=== PATIENT | female | born 1945 ===

== ENCOUNTER 2018-05-25 18:04 | Emergency (ER) | payer MEDICARE, OTHER ==
[2018-05-25] MEDS ORDERED: Sodium Chloride 0.9% 1,000 ML IV ONE (19:06)
[2018-05-25 19:28] VITALS: PULSE 74
[2018-05-25 19:52] LABS: BASO # 0.1 K/uL (0.0-0.2); EOS # 0.2 K/uL (0.0-0.7); EOS % 1.9 % (0.0-4.0); HEMOGLOBIN 14.5 g/dL (11.0-16.0); LYMPH # 2.4 K/uL (1.0-4.3); LYMPH % 22.5 % (20.0-40.0); MEAN CELL VOLUME 93.8 fL (81.0-99.0); MEAN CORPUSCULAR HEMOGLOBIN 30.9 pg (27.0-31.0); MONO # 0.5 K/uL (0.0-0.8); MONO % 5.2 % (0.0-10.0); NEUT # 7.3 K/uL (1.8-7.0); NEUT % 69.4 % (50.0-75.0); RBC 4.67 Mil/uL (3.80-5.20); RED CELL DISTRIBUTION WIDTH 13.8 % (11.5-14.5); WHITE BLOOD COUNT 10.5 K/uL (4.8-10.8)
[2018-05-25 19:59] LABS: SQUAMOUS EPITHIAL < 1 /hpf (0-5); URINE BACTERIA RARE (<OCC); URINE BILIRUBIN NEGATIVE (NEGATIVE); URINE BLOOD 1+ (NEGATIVE); URINE CLARITY Clear (Clear); URINE COLOR Straw (YELLOW); URINE GLUCOSE (UA) NORMAL (Normal); URINE LEUKOCYTE ESTERASE NEG Leu/uL (Negative); URINE PROTEIN NEGATIVE (NEGATIVE); URINE UROBILINOGEN NORMAL mg/dL (0.2-1.0)
[2018-05-25 20:05] LABS: ALB/GLOB RATIO 1.4 (1.0-2.1); ALBUMIN 4.5 g/dL (3.5-5.0); ALT/SGPT 24 U/L (9-52); AST/SGOT 31 U/L (14-36); BLOOD UREA NITROGEN 23 mg/dL (7-17); CALCIUM 9.6 mg/dl (8.6-10.4); GFR NON-AFRICAN AMERICAN > 60; LIPASE 351 U/L (23-300)
--- NOTE | 2018-05-25 20:11 | C.PDOC ---
History Of Present Illness 73 year old female presents with lower abdominal pain since last week, referred by Dr. Krzysztof Hernández for evaluation. Patient with Hx of diverticulitis with bowel resection in 2010 at [place]. Time Seen by Provider: 05/25/18 18:54 Chief Complaint (Nursing): Abdominal Pain History Per: Patient History/Exam Limitations: no limitations Onset/Duration Of Symptoms: Days (7) Current Symptoms Are (Timing): Still Present Location Of Pain/Discomfort: Other (Lower) Quality Of Discomfort: Unable To Describe Associated Symptoms: denies: Fever, Chills, Nausea, Vomiting, Diarrhea Exacerbating Factors: None Alleviating Factors: None Recent travel outside of the [place]: No Abnormal Vaginal Bleeding: No Past Medical History Reviewed: Historical Data, Nursing Documentation, Vital Signs Vital Signs: Last Vital Signs Temp 97.9 F 05/25/18 19:27 Pulse 74 05/25/18 19:27 Resp 18 05/25/18 19:27 BP 145/84 05/25/18 19:27 Pulse Ox 99 05/25/18 19:27 - Medical History PMH: HTN Family History: States: No Known Family Hx - Social History Hx Alcohol Use: No Hx Substance Use: No - Immunization History Hx Tetanus Toxoid Vaccination: No Hx Influenza Vaccination: No Hx Pneumococcal Vaccination: No Review Of Systems Constitutional: Negative for: Fever, Chills Cardiovascular: Negative for: Chest Pain, Palpitations Respiratory: Negative for: Cough, Shortness of Breath Gastrointestinal: Positive for: Abdominal Pain. Negative for: Nausea, Vomiting Neurological: Negative for: Weakness, Numbness Physical Exam - Physical Exam Appears: Non-toxic, Other (Thin female) Skin: Warm Head: Atraumatic, Normacephalic Eye(s): bilateral: Normal Inspection Oral Mucosa: Moist Neck: Normal, Supple Chest: Symmetrical, No Tenderness Cardiovascular: Rhythm Regular Respiratory: Normal Breath Sounds, No Rales, No Rhonchi, No Wheezing Gastrointestinal/Abdominal: Soft, Tenderness (Lower), No Guarding, No Rebound, Other (Two large surgical scars to lower abdomen. Bloating to lower abdomen) Back: No CVA Tenderness Neurological/Psych: Oriented x3, Normal Speech ED Course And Treatment - Laboratory Results Result Diagrams: 05/25/18 19:43 05/25/18 19:43 Lab Results: Total Bilirubin 0.3 mg/dL (0.2-1.3) 05/25/18 19:43 AST 31 U/L (14-36) 05/25/18 19:43 ALT 24 U/L (9-52) 05/25/18 19:43 Alkaline Phosphatase 105 U/L (38-126) 05/25/18 19:43 Total Protein 7.6 g/dL (6.3-8.3) 05/25/18 19:43 Albumin 4.5 g/dL (3.5-5.0) 05/25/18 19:43 Globulin 3.1 gm/dL (2.2-3.9) 05/25/18 19:43 Albumin/Globulin Ratio 1.4 (1.0-2.1) 05/25/18 19:43 Lipase 351 U/L (23-300) H 05/25/18 19:43 Urine Color Straw (YELLOW) 05/25/18 19:43 Urine Clarity Clear (Clear) 05/25/18 19:43 Urine pH 7.0 (5.0-8.0) 05/25/18 19:43 Ur Specific [place] 1.010 (1.003-1.030) 05/25/18 19:43 Urine Protein Negative mg/dL (NEGATIVE) 05/25/18 19:43 Urine Glucose (UA) Normal mg/dL (Normal) 05/25/18 19:43 Urine Ketones Negative mg/dL (NEGATIVE) 05/25/18 19:43 Urine Blood 1+ (NEGATIVE) H 05/25/18 19:43 Urine Nitrate Negative (NEGATIVE) 05/25/18 19:43 Urine Bilirubin Negative (NEGATIVE) 05/25/18 19:43 Urine Urobilinogen Normal mg/dL (0.2-1.0) 05/25/18 19:43 Ur Leukocyte Esterase Neg Yadira/uL (Negative) 05/25/18 19:43 Urine WBC (Auto) 1 /hpf (0-5) 05/25/18 19:43 Urine RBC (Auto) 7 /hpf (0-3) H 05/25/18 19:43 Ur Squamous Epith Cells < 1 /hpf (0-5) 05/25/18 19:43 Urine Bacteria Rare (<OCC) 05/25/18 19:43 Lab Interpretation: Normal (ua neg.) O2 Sat by Pulse Oximetry: 99 (Room air) Pulse Ox Interpretation: Normal - CT Scan/US Abd/pel Other Rad Studies (CT/US): Read By Radiologist, Radiology Report Reviewed CT/US Interpretation: IMPRESSION: 1. Evidence of mild gastritis. 2. Findings suspicious for mild chronic cystitis. 3. Large midline ventral hernia containing segments of small, large intestine and fat. 4. Status post cholecystectomy. 5. Status post hysterectomy. 6. There appears to have been prior appendectomy. 7. Evidence of previous rectal anastomosis. Reevaluation Time: 22:04 Reassessment Condition: Improved - Physician Consult Information Outcome Of Conversation: 2200: d/w Dr. Holliday, GI who referred pt today, labs normal and large vent hernia without acute issues. He recommends d/c home w opt f/u and reassurance Medical Decision Making Medical Decision Making: large surgical ventral hernia without acute issues ok for opt f/u Surgical eval for treatment is NOT a reasonable option at this time. NOT an acute belly. Disposition Doctor Will See Patient In The: Office Counseled Patient/Family Regarding: Studies Performed, Diagnosis - Disposition Disposition: HOME/ ROUTINE Disposition Time: 22:08 Condition: GOOD Forms: [employer] (formerly [employer]) Connect (Kazakh) - Clinical Impression Clinical Impression: Ventral hernia - Scribe Statement The provider has reviewed the documentation as recorded by the Scribe Rome Dominguez All medical record entries made by the Yrisibronny were at my direction and personally dictated by me. I have reviewed the chart and agree that the record accurately reflects my personal performance of the history, physical exam, medical decision making, and the department course for this patient. I have also personally directed, reviewed, and agree with the discharge instructions and disposition.
[2018-05-25] MEDS ORDERED: Iohexol 300 100 ML IJ ONE (20:16)
[2018-05-25 22:10] VITALS: BP 119/63; RESP 20; TEMP 98.7; O2SAT 95
--- NOTE | 2018-05-26 09:57 | CT ---
Date of service: 05/25/2018 PROCEDURE: CT Abdomen and Pelvis without intravenous contrast HISTORY: Abdominal pain. History of bowel resection. COMPARISON: 12/25/2013 TECHNIQUE: CT scan of the abdomen and pelvis was performed without administration of intravenous contrast. Oral contrast was not administered. Coronal and sagittal reformatted images were obtained. Radiation dose: Total exam DLP = 320.93 mGy-cm. This CT exam was performed using one or more of the following dose reduction techniques: Automated exposure control, adjustment of the mA and/or kV according to patient size, and/or use of iterative reconstruction technique. FINDINGS: LOWER THORAX: The visualized lungs are clear. LIVER: Mild hepatomegaly with caudate lobe hypertrophy. No gross lesion or ductal dilatation. GALLBLADDER AND BILE DUCTS: Surgically absent. PANCREAS: Normal in size. No gross lesion or ductal dilatation. SPLEEN: Normal in size. ADRENALS: Normal in size. No discrete nodule. KIDNEYS AND URETERS: Both kidneys are normal in size. No hydronephrosis or nephrolithiasis. VASCULATURE: Normal in caliber. No aortic aneurysm. No aortic atherosclerotic calcification or mural plaque present. BOWEL: Evaluation of the bowel is limited in the absence of oral contrast. The small bowel loops are normal in caliber. There is fecalization of small bowel contents. There is moderate amount of stool in the colon. No bowel wall thickening or obstruction. Status post partial sigmoid colon resection. APPENDIX: No inflammatory changes in the right lower quadrant. PERITONEUM: No free fluid. No free air. LYMPH NODES: No enlarged lymph nodes. BLADDER: There is mild circumferential mural thickening of the urinary bladder wall. REPRODUCTIVE: The uterus is surgically absent. BONES: No acute fracture. Within normal limits for the patient's age. OTHER FINDINGS: There is a large infraumbilical ventral hernia containing nonobstructed small bowel loops and more inferiorly a smaller infraumbilical ventral hernia containing nonobstructed small bowel loops with IMPRESSION: No acute abdominal or pelvic abnormality. Infraumbilical ventral hernias containing nonobstructed small bowel loops. Constipation and fecalization of small bowel contents consistent with chronic stasis. Mild circumferential mural thickening of the urinary bladder wall which may represent cystitis. Please correlate with urine analysis. A preliminary report was provided by [employer].
== END 2018-05-25 22:35 | disposition home or self-care (01) ==
LOC: C.ER 18:04
DX: K43.9 Ventral hernia without obstruction or gangrene (principal)
CPT/HCPCS: 74176; 80053; 81001; 83690; 85025; 96361; 96374; 99284; J1885; J7030

== ENCOUNTER 2018-05-26 00:01 | Emergency (ER) | payer MEDICARE ==
[2018-05-26 00:27] VITALS: BMI 48.0
[2018-05-26 02:32] VITALS: RESP 18
--- NOTE | 2018-05-26 02:49 | C.PDOC ---
History Of Present Illness 73 year old female was seen here earlier but while waiting for the bus she tripped and hit both her knees, unsure of head injury. Bystanders helped her up and brought her in. Denies other known injuries. - HPI Time Seen by Provider: 05/26/18 00:25 Chief Complaint (Nursing): Trauma History Per: Patient History/Exam Limitations: no limitations Onset/Duration Of Symptoms: Mins Injury Occurred (Timing): Just Before Arrival Location Of Injury: Right: Knee (Abrasions), Left: Knee Recent travel outside of the [place]: No - Fall Fall:Prior To Injury: Tripped Past Medical History Reviewed: Historical Data, Nursing Documentation, Vital Signs Vital Signs: Last Vital Signs Temp 98.5 F 05/26/18 02:31 Pulse 63 05/26/18 02:31 Resp 18 05/26/18 02:31 BP 105/62 05/26/18 02:31 Pulse Ox 97 05/26/18 02:31 - Medical History PMH: HTN Family History: States: Unknown Family Hx - Social History Hx Alcohol Use: No Hx Substance Use: No - Immunization History Hx Tetanus Toxoid Vaccination: No Hx Influenza Vaccination: No Hx Pneumococcal Vaccination: No Review Of Systems Musculoskeletal: Negative for: Neck Pain, Back Pain Skin: Positive for: Other (Abrasion) Neurological: Negative for: Weakness, Numbness, Dizziness Physical Exam - Physical Exam Appears: Well, Non-toxic, No Acute Distress Skin: Warm Head: Atraumatic, Normacephalic, Other (No apparent head injury) Eye(s): bilateral: Normal Inspection, PERRL, EOMI Oral Mucosa: Moist Neck: Normal ROM, No Midline Cervical Tenderness, No Paracervical Tenderness, Supple Back: No Vertebral Tenderness, No Paraspinal Tenderness Extremity: Normal ROM (x4), Other (Abrasions to bilateral knees) Pulses: Left Dorsalis Pedis: Normal, Right Dorsalis Pedis: Normal Neurological/Psych: Oriented x3, Normal Speech, Normal Cranial Nerves (Grossly intact), Normal Motor, Normal Sensation, Romberg (Answers appropriately) ED Course And Treatment O2 Sat by Pulse Oximetry: 97 (Room air) Pulse Ox Interpretation: Normal - CT Scan/US CT Head Other Rad Studies (CT/US): Read By Radiologist, Radiology Report Reviewed CT/US Interpretation: CT SCAN OF THE BRAIN WITHOUT IV CONTRAST. CLINICAL INDICATION: s/p fall injuring both knees right frontal region and swelling over zygoma NO CT AVAIL, ONLY MRI (Hx). COMPARISON: 06/16/2017 01:26 PM EDT: MR\SD: MRA HEAD WITHOUT CONTRAST. TECHNIQUE: Axial and reformatted sagittal and coronal images of the brain obtained without IV contrast administration. Normal size of the ventricles and extra-axial spaces for the patient's age. Normal white matter tracts of the supratentorial brain. Normal basal ganglia and thalami. Normal brainstem. Normal cerebellum. There is no demonstrated extra- axial, intraparenchymal, or intraventricular hemorrhage. There are no findings of an acute ischemic infarction. Normal calvarium. There is no demonstrated fracture. Normal soft tissue structures. Mild chronic mucosal inflammatory changes of the left maxillary sinus. Normal remaining visualized paranasal sinuses. IMPRESSION: Normal unenhanced CT scan of the brain. Progress Note: She slept in the ED overnight until daylight returned. she had no acute issues overnight. 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 - Scribe Statement The provider has reviewed the documentation as recorded by the Scribe Rome Dominguez All medical record entries made by the Scribe were at my direction and personally dictated by me. I have reviewed the chart and agree that the record accurately reflects my personal performance of the history, physical exam, medical decision making, and the department course for this patient. I have also personally directed, reviewed, and agree with the discharge instructions and disposition.
[2018-05-26 05:09] VITALS: BP 144/71; PULSE 58; TEMP 98.2
[2018-05-26 05:38] VITALS: O2SAT 97
--- NOTE | 2018-05-26 08:09 | CT ---
Date of service: 05/26/2018 PROCEDURE: CT HEAD WITHOUT CONTRAST. HISTORY: fall COMPARISON: None available. TECHNIQUE: Axial computed tomography images were obtained through the head/brain without intravenous contrast. Radiation dose: Total exam DLP = 1114.59 mGy-cm. This CT exam was performed using one or more of the following dose reduction techniques: Automated exposure control, adjustment of the mA and/or kV according to patient size, and/or use of iterative reconstruction technique. FINDINGS: HEMORRHAGE: No intracranial hemorrhage. BRAIN: Washburn-white matter differentiation is preserved. There is no mass, mass effect or abnormal extra-axial fluid collection. There is no territorial infarction. The midline sagittal structures are normal. VENTRICLES: The ventricles are normal in size, shape and configuration. CALVARIUM: There is no calvarial fracture or extracranial soft tissue swelling. PARANASAL SINUSES: There is mild polypoid mucosal thickening in the left maxillary sinus. The remaining included paranasal sinuses are predominantly clear. MASTOID AIR CELLS: Predominantly clear. OTHER FINDINGS: None. IMPRESSION: No acute intracranial abnormality. A preliminary report was provided by [employer].
--- NOTE | 2018-05-26 12:46 | RAD ---
Date of service: 05/26/2018 PROCEDURE: Bilateral Knee Radiographs. HISTORY: injury COMPARISON: 09/23/2014. TECHNIQUE: 4 views obtained. FINDINGS: BONES: Right Knee: There is periarticular bone demineralization. No acute displaced fracture or bone destruction. Bone alignment is normal. Left Knee: There is periarticular bone demineralization. No acute displaced fracture or bone destruction. Bone alignment is normal. JOINTS: Right Knee: There is mild tricompartmental degenerative osteoarthrosis with reduced joint spaces, marginal osteophytes and tibial spiking, worse in the medial compartment. Left knee: There is mild tricompartmental degenerative osteoarthrosis with reduced joint spaces, marginal osteophytes and tibial spiking, worse in the medial compartment. SOFT TISSUES: Right Knee: There is large prepatellar soft tissue swelling. Left Knee: Normal. JOINT EFFUSION: Right Knee: Small suprapatellar joint effusion. Left Knee: Small suprapatellar joint effusion. OTHER FINDINGS: There is large prepatellar soft tissue swelling. IMPRESSION: No acute displaced fracture or dislocation. Large right prepatellar soft tissue swelling. Small suprapatellar joint effusion.
== END 2018-05-26 06:41 | disposition home or self-care (01) ==
LOC: C.ER 00:01
DX: S80.211A Abrasion, right knee, initial encounter (principal); S80.212A Abrasion, left knee, initial encounter; W01.0XXA Fall on same level from slipping, tripping and stumbling without subsequent striking against object, initial encounter; Y92.89 Other specified places as the place of occurrence of the external cause